=== PATIENT | male | born 1960 | race Caucasian/White ===

== ENCOUNTER 2016-12-28 06:45 | Inpatient (IN) | payer OTHER ==
[2016-11-30 10:17] VITALS: BMI 39.0
--- NOTE | 2016-11-30 10:53 | PAT Medication Instructions ---
Service Date Nov 30, 2016. Current Home Medication List Aspirin (Aspirin), 325 MG PO QPM Atenolol (Tenormin), 25 MG PO QAM Atorvastatin (Lipitor), 40 MG PO QAM Lisinopril/Hctz (Zestoretic 20MG/25MG), 2 TAB PO QAM Mometasone Furoate (Nasal) (Mometasone Furoate), 2 SPRAYS JESENIA PRN Omeprazole (Prilosec), 20 MG PO QAM [Potassium Otc], 1 TAB PO QAM Medication Instructions For Your Scheduled Surgery - Check with surgeon/family doctor for instructions: Aspirin (Aspirin), 325 MG PO QPM - Hold the following medications the morning of surgery: [Potassium Otc], 1 TAB PO QAM Lisinopril/Hctz (Zestoretic 20MG/25MG), 2 TAB PO QAM - Take the following medications the morning of surgery with a sip of water: Atenolol (Tenormin), 25 MG PO QAM Atorvastatin (Lipitor), 40 MG PO QAM Mometasone Furoate (Nasal) (Mometasone Furoate), 2 SPRAYS JESENIA PRN (if needed) Omeprazole (Prilosec), 20 MG PO QAM - Take the following medications as scheduled the night before surgery: Mometasone Furoate (Nasal) (Mometasone Furoate), 2 SPRAYS JESENIA PRN (if needed) If you have any questions please call us at [phone] or [phone] or [phone]
--- NOTE | 2016-11-30 11:45 | DIAGNOSTIC IMAGING REPORT ---
CHEST PREADMISSION(PA/LAT) HISTORY: Preop. COMPARISON: Chest 12/20/2012. FINDINGS: The lungs are clear. Cardiac silhouette is normal in size. No pleural effusions. No pneumothorax. IMPRESSION: No acute process. Electronically signed by: Elier Gilliam M.D. 11/30/2016 11:44 AM Dictated Date/Time: 11/30/2016 11:43 AM
[2016-11-30 12:47] LABS: BASO % 0.4 %; BASO ABS # 0.03 K/uL (0-0.2); COMPLETE YES; EOS % 2.6 %; HEMATOCRIT 42.7 % (42-52); IG% 0.3 %; LYMPH % 30.2 %; LYMPH ABS # 2.29 K/uL (1.2-3.4); MEAN CELL VOLUME 84.1 fL (80-100); MEAN CORPUSCULAR HEMOGLOBIN 29.3 pg (25-34); MEAN CORPUSCULAR HGB CONC 34.9 g/dl (32-36); MEAN PLATELET VOLUME 11.6 fL (7.4-10.4); MONO % 11.1 %; NEUT % 55.4 %; PLATELET COUNT 204 K/uL (130-400); RED BLOOD COUNT 5.08 M/uL (4.7-6.1); WHITE BLOOD COUNT 7.59 K/uL (4.8-10.8)
[2016-11-30 12:56] LABS: BUN/CREATININE RATIO 14.7 (10-20); CALCIUM 9.8 mg/dl (8.5-10.1); CREATININE 1.1 mg/dl (0.60-1.40); POTASSIUM 4.2 mmol/L (3.5-5.1)
[2016-11-30 13:43] LABS: MANUAL MICROSCOPIC REQUIRED? NO; URINE APPEARANCE CLEAR (CLEAR); URINE BILIRUBIN NEG (NEG); URINE COLOR YELLOW; URINE NITRITE NEG (NEG); UROBILINOGEN NEG (NEG)
[2016-11-30 13:44] LABS: REVIEW REQ? NO; ZZUR CULT IF INDIC CLEAN CATCH NO
[~2016-12-28] VITALS: Ht 170.2 cm; Wt 114.3 kg
[2016-12-28] VITALS (8 sets, daily range): BP systolic 113–192; BP diastolic 73–129; PULSE 62–88; TEMP 36.4–37.1; O2SAT 94–98; Ht 170.2 cm; Wt 114.3 kg
[~2016-12-28 06:45] MED LIST: ASPI325T45 PO; ATEN-173 PO; ATOR-24 PO; CEFAZOLIN 2000MG IV PUSH 10 ML IV SCH; LACTATED RINGER'S 1000ML 1,000 ML IV SCH; LISI-788 PO; MOME6000 NAE; POTASSIUM OTC PO; PRLSR20 PO
[2016-12-28] MEDS ORDERED: ACET-1311 PO (07:26)
[2016-12-28] MEDS ORDERED: FENTANYL CITRATE INJ 50 MCG/1 ML 2 ML VIAL IV PRN (07:30)
[2016-12-28] MEDS ORDERED: ATROPINE SULFATE 0.1 MG/ML 5ML SYR IV PRN (07:30)
[2016-12-28] MEDS ORDERED: ONDANSETRON INJ 2 MG/ML 2 ML VIAL IV PRN ×2 (07:30→12:00)
[2016-12-28] MEDS ORDERED: EpHEDrine SULFATE INJ 50 MG/ML AMP IV PRN (07:30)
[2016-12-28] MEDS ORDERED: HYDROmorphone INJ 1 MG/ML SYR IV PRN (07:30)
--- NOTE | 2016-12-28 07:45 | History & Physical Bridge Note ---
H&P Re-Evaluation Bridge Note: I have examined the patient, reviewed the History & Physical and in the interval since the performance of the History & Physical I have noted the following changes of clinical significance: No changes noted
--- NOTE | 2016-12-28 07:46 | History and Physical ---
History & Physical Date Dec 28, 2016. Chief Complaint Back and leg pain History of Present Illness The patient is a 56 year old male with complaints of back and leg pain Additional History Hepatic Disease: No Endocrine Disorder: No Kidney Disease: No Hypertension: Yes Heart Disease: No Bleeding Tendencies: No Infectious Diseases: No Allergies Coded Allergies: Formaldehyde (Verified Allergy, Unknown, DRY SKIN,SENSITIVITY HANDS AND FEET-WAS PATCH TESTED, 12/28/16) Sertraline (Verified Adverse Reaction, Mild, UPSET STOMACH, 12/28/16) Home Medications Scheduled Aspirin (Aspirin), 325 MG PO QPM Atenolol (Tenormin), 25 MG PO QAM Atorvastatin (Lipitor), 40 MG PO QAM Lisinopril/Hctz (Zestoretic 20MG/25MG), 2 TAB PO QAM Mometasone Furoate (Nasal) (Mometasone Furoate), 2 SPRAYS JESENIA PRN Omeprazole (Prilosec), 20 MG PO QAM [Potassium Otc], 1 TAB PO QAM Miscellaneous Medications Acetaminophen (Tylenol), 650 MG PO Physical Examination Skin: warm/dry, no rash Eyes: normal inspection, EOMI, sclerae normal ENT: normal ENT inspection, pharynx normal Head: normocephalic, atraumatic Neck: supple, no adenopathy, trachea midline Respiratory/Chest: lungs clear, normal breath sounds, no respiratory distress Cardiovascular: regular rate, rhythm, no edema, no murmur Abdomen / GI: normal bowel sounds, non tender Back: normal inspection Extremities: normal inspection, normal range of motion Neurologic/Psych: no motor/sensory deficits, alert, normal reflexes, oriented x 3 Diagnosis Lumbar spinal stenosis Plan of Treatment Hardware removal L3 to L5 decompression L1 to L3 with fusion T10 to L5
[2016-12-28] MEDS ORDERED: MIDAZOLAM HCL 1 MG/ML 2ML VIAL ONE (08:14)
[2016-12-28] MEDS ORDERED: FENTANYL CITRATE INJ 50 MCG/1 ML 2 ML VIAL ONE ×4 (08:14→12:00)
[2016-12-28] MEDS ORDERED: CEFAZOLIN SOD 2000MG/10 ML IV PUSH IV ONE (08:33)
[2016-12-28] MEDS ORDERED: ALBUMIN HUMAN 5% 12.5 GM/250 ML VIAL IV ONE (08:39)
[2016-12-28] MEDS ORDERED: BUPIVACAINE/EPINEPHRINE 0.5% MPF 1:200,000 30 ML VIAL ONE (08:41)
[2016-12-28] MEDS ORDERED: BACITRACIN 50000 UNIT VIAL ONE (08:41)
[2016-12-28] MEDS ORDERED: HYDROmorphone INJ 2 MG/ML SYR/VIAL ONE ×3 (09:11→12:03)
[2016-12-28] MEDS ORDERED: LIDOCAINE HCL 2% 2 ML VIAL (20MG/ML) ONE (11:48)
[2016-12-28] MEDS ORDERED: DEXAMETHASONE SOD INJ 4 MG/ML VIAL ONE (11:48)
[2016-12-28] MEDS ORDERED: VOLUVEN IN NSS ONE (11:48)
[2016-12-28] MEDS ORDERED: PROPOFOL IV EMULSION 10 MG/ML 20 ML VIAL IV ONE (11:48)
[2016-12-28] MEDS ORDERED: EpHEDrine SULFATE 50MG/5ML SYR ONE (11:48)
[2016-12-28] MEDS ORDERED: ONDANSETRON INJ 2 MG/ML 2 ML VIAL ONE (11:48)
[2016-12-28] MEDS ORDERED: PHENYLEPHRINE 100MCG/ML 5ML SYR ONE (11:48)
[2016-12-28] MEDS ORDERED: SODIUM CHLORIDE 0.9% 1000ML 1,000 ML IV SCH (11:57)
[2016-12-28] MEDS ORDERED: FLOSEAL HEMOSTATIC MATRIX 10ML TOP ONE (11:58)
[2016-12-28] MEDS ORDERED: DO NOT ADMINISTER FLU VACCINE PRN ×3 (12:00)
[2016-12-28] MEDS ORDERED: LORAZEPAM INJ 0.5 MG in SYRINGE 0.75 ML IV PRN (12:00)
[2016-12-28] MEDS ORDERED: ACETAMINOPHEN 500 MG TAB PO PRN (12:00)
[2016-12-28] MEDS ORDERED: ALUMINUM/MAGNESIUM SUSP 30 ML UDC PO PRN (12:00)
[2016-12-28] MEDS ORDERED: BISACODYL 10 MG SUPP PR PRN (12:00)
[2016-12-28] MEDS ORDERED: SOD PHOSPHATE/SOD BIPHOSPHATE ENEMA 132 ML BTL PR PRN (12:00)
[2016-12-28] MEDS ORDERED: METOCLOPRAMIDE HCL INJ 5 MG/ML 2 ML VIAL IV PRN (12:00)
[2016-12-28] MEDS ORDERED: FAMOTIDINE 20 MG TAB PO PRN (12:00)
[2016-12-28] MEDS ORDERED: hydrOXYzine HCL 25 MG TAB PO PRN (12:00)
[2016-12-28] MEDS ORDERED: DO NOT ADMINISTER PNEUMOCOCCAL VACCINE PRN ×2 (12:00)
[2016-12-28] MEDS ORDERED: NALOXONE HCL 0.4 MG/1 ML VIAL/CARP IV PRN ×2 (12:00)
[2016-12-28] MEDS ORDERED: LORAZEPAM 0.5 MG TAB PO PRN (12:00)
[2016-12-28] MEDS ORDERED: ACETAMINOPHEN IV 100 ML IV PRN (12:00)
[2016-12-28] MEDS ORDERED: PROMETHAZINE HCL INJ 12.5 MG in SODIUM CHLORIDE 0.9% 50ML 50 ML IV PRN (12:00)
[2016-12-28] MEDS ORDERED: MAGNESIUM HYDROXIDE SUSP 30 ML UDC PO PRN (12:00)
--- NOTE | 2016-12-28 12:10 | [facility] Operative Report ---
Operative Report Operative Date Dec 28, 2016. Pre-Operative Diagnosis Lumbar Spinal Stenosis Post-Operative Diagnosis same as pre-operative Procedure(s) Performed #1 removal of posterior segmental instrumentation L3 4 L4 5. #2 exploration of fusion L3 4 L4 5. #3 lumbar decompression medial facetectomies foraminotomies L1 to L2 3 #4 posterior spinal fusion T10 to L3. #5 placement of posterior segmental instrumentation T11 to L5. #6 interbody fusion L2 3. #7 placement peek cage 10 x 26 mm at L2-3. #8 placement of locally harvested morcellized autograft posterior gutters. #9 placement infuse collagen sponge about mask graft posterior gutters and ostial amp in the interbody space. Surgeon Dr. Luis Vasquez Sales Compensation Analyst Surgeon(s) DIANNA Bhandari Estimated Blood Loss 750mL Findings Severe spinal stenosis Specimens Specimen A: Explanted Hardware L3-L5 Description of Procedure Patient was met with preoperatively case discussed all questions were addressed. After informed consent obtained patient was taken to the operative suite underwent intubation placed in a prone position the [place] table top Fabricio frame. All bony prominences were well-padded eyes inspected to ensure there is no external pressure placed upon them. This point the lumbar spine is prepped and draped nostril fashion. Sharp dissection with the assistance of Bovie cautery was performed onto an exposing the lamina and transverse processes of T10-T11 T12 L1 L2 and instrumentation at the L3-L4 and L5 levels bilaterally. Then proceeded remove the hardware at L3 L4-L5 bilaterally spine fusion mass noting it to be intact. Then performed a complete laminectomy of L2 and L3 addressing severe lateral recess and foraminal stenosis. Pedicle screws are then placed in T11-T12 L1 L2 L3 L4-L5 bilaterally with assistance of fluoroscopy and the 8 appropriately sized marie placed. Through a transforaminal approach on the right complete discectomy of L to 3 was performed and plate created to subcortical bleeding bone and a 11 x 26 mm peek cage filled with ostial amp tapped in position. Brought in and compressed locked and final position bilaterally. Cross-link was locked in position. The lamina and transverse processes of T10 T11 T12 L1 2 3 and 4 burred to subcortical bleeding bone infuse collagen sponge mask graft locally harvested morcellized autograft was placed the posterior gutters. 15 round PRADIP drain inserted. Incision was then closed with 1 Vicryl in the fascia 2-0 Vicryl subcutaneously and 4 Monocryl for final skin closure. Steri-Strips sterile dressings placed. Patient we can taken to PACU stable condition. Please note April Gambino was present at the entire procedure involved in patient positioning complex portions of the surgery and final skin closure. I attest to the content of the Intraoperative Record and any orders documented therein. Any exceptions are noted below.
--- NOTE | 2016-12-28 12:38 | DIAGNOSTIC IMAGING REPORT ---
LUMBAR SPINE, INTRAOPERATIVE FLUOROSCOPY HISTORY: T11-L5 fusion. FLUOROSCOPY TIME: 26 seconds. FINDINGS: Intraoperative fluoroscopy was provided for the lumbar spine. 6 fluoroscopic spot images were obtained. Posterior decompression fusion from T11 through L5 with pedicle screws and rods. The hardware appears intact. There are disc spaces at L2-L3, L4-L5, and L5-S1. Posterior to the L2-L3 disc space there is a small sponge like foreign body which appears to be within the left side of the spinal canal. IMPRESSION: Fluoroscopy provided for a T11-L5 posterior decompression and fusion. There are suggestion of a small sponge like foreign body within the left side of the spinal canal posterior to the L2-L3 intervertebral disc spacer. These findings were discussed with Dr. Vasquez at 12:45 PM on 12/28/2016. After discussion with Dr. Vasquez these are for postoperative bleeding and were removed prior to completion of the case. Electronically signed by: Elier Gilliam M.D. 12/28/2016 12:47 PM Dictated Date/Time: 12/28/2016 12:27 PM
[2016-12-28] MEDS ORDERED: HYDROmorphone HCL 0.5MG/ML 50 ML CASSETTE ONE (12:39)
--- NOTE | 2016-12-28 13:06 | Anesthesiology Progress Note ---
Anesthesia Post Op Note Date & Time Dec 28, 2016 at 13:06 Vital Signs Pain Intensity: 0 Vital Signs Past 12 Hours Date Time Temp Pulse Resp B/P (MAP) Pulse Ox O2 Delivery O2 Flow Rate FiO2 12/28/16 13:00 36.3 84 16 183/84 98 Nasal Cannula 3 12/28/16 12:50 82 16 166/87 100 Oxymask 5 12/28/16 12:40 85 16 164/87 96 Oxymask 5 12/28/16 12:32 36.3 84 16 126/96 96 Oxymask 10 12/28/16 07:15 37.1 62 20 192/129 98 Room Air 141/101 Notes Mental Status: alert / awake / arousable, participated in evaluation Pt Amnestic to Procedure: Yes Nausea / Vomiting: adequately controlled Pain: adequately controlled Airway Patency, RR, SpO2: stable & adequate BP & HR: stable & adequate Hydration State: stable & adequate Anesthetic Complications: no major complications apparent
[2016-12-28] MEDS: HYDROmorphone HCL 0.5MG/ML 50 ML CASSETTE IV PRN ×2 (14:58→23:08)
[2016-12-28] MEDS: DEXAMETHASONE INJ 6 MG in SYRINGE 0 ML IV SCH (16:07)
[2016-12-28] MEDS: CEFAZOLIN IV 2,000 MG in SYRINGE 0 ML IV SCH (16:07)
[2016-12-28] MEDS: SODIUM CHLORIDE 0.9% 1000ML 1,000 ML IV SCH (17:48)
[2016-12-28] MEDS ORDERED: NURSING VERBAL MED ORDER ONE (18:00)
[2016-12-28] MEDS: DOCUSATE SODIUM/SENNA 50/8.6MG TAB PO SCH (21:07)
[2016-12-28] MEDS: ASPIRIN 325 MG ECTAB PO SCH (21:08)
[2016-12-29] MEDS: SODIUM CHLORIDE 0.9% 1000ML 1,000 ML IV SCH (00:18)
[2016-12-29] MEDS: DEXAMETHASONE INJ 6 MG in SYRINGE 0 ML IV SCH ×2 (00:18→08:49)
[2016-12-29] MEDS: CEFAZOLIN IV 2,000 MG in SYRINGE 0 ML IV SCH (00:18)
[2016-12-29 03:03] VITALS: BP 126/73; PULSE 74; TEMP 36.5; O2SAT 92
[2016-12-29] MEDS ORDERED: HYDROmorphone INJ 0.5 MG/0.5 ML SYR IV PRN (06:00)
[2016-12-29] MEDS ORDERED: HYDROmorphone INJ 1 MG/ML SYR IV PRN (06:00)
[2016-12-29] MEDS ORDERED: DC PCA SCH (06:00)
[2016-12-29] MEDS ORDERED: NURSING DECISION MEDICATION ORDER SCH (06:15)
[2016-12-29 06:27] LABS: COMPLETE YES; HEMATOCRIT 30.7 % (42-52); IG% 0.4 %; LYMPH % 8.3 %; LYMPH ABS # 1.02 K/uL (1.2-3.4); MEAN CELL VOLUME 83.7 fL (80-100); MEAN CORPUSCULAR HEMOGLOBIN 28.3 pg (25-34); MEAN CORPUSCULAR HGB CONC 33.9 g/dl (32-36); MEAN PLATELET VOLUME 10.7 fL (7.4-10.4); NEUT % 86.3 %; PLATELET COUNT 178 K/uL (130-400); RED BLOOD COUNT 3.67 M/uL (4.7-6.1); WHITE BLOOD COUNT 12.27 K/uL (4.8-10.8)
[2016-12-29 07:00] LABS: BUN/CREATININE RATIO 15.5 (10-20); CALCIUM 7.8 mg/dl (8.5-10.1); CREATININE 0.97 mg/dl (0.60-1.40); POTASSIUM 3.5 mmol/L (3.5-5.1)
[2016-12-29 07:39] VITALS: BP 131/75; PULSE 76; TEMP 36.4; O2SAT 97
--- NOTE | 2016-12-29 08:16 | Progress Note ---
Progress Note Date of Service Dec 29, 2016. Progress Note Patient's back pain is controlled. Leg pain improved. Vital signs are stable. On exam is good strength testing appears comfortable. Assessment status post thoracal lumbar fusion. Planned this time we'll initiate physical therapy today advance his bowel regiment anticipate home this weekend.
[2016-12-29] MEDS ORDERED: LISINOPRIL/HCTZ 20/25MG TAB PO SCH (09:00)
[2016-12-29] MEDS ORDERED: ATORVASTATIN 40 MG TAB PO SCH (09:00)
[2016-12-29] MEDS ORDERED: PANTOprazole SOD 40 MG TAB PO SCH (09:00)
[2016-12-29 11:53] VITALS: BP 122/88; PULSE 94; TEMP 36.5; O2SAT 96
[2016-12-29] MEDS: OXYCODONE HCL IR 5 MG TAB (IMMEDIATE RELEASE) PO PRN (12:31)
[2016-12-29 15:00] VITALS: BP 106/55; PULSE 92; TEMP 36.4; O2SAT 95
[2016-12-29] MEDS: ASPIRIN 325 MG ECTAB PO SCH (21:08)
[2016-12-29] MEDS: DOCUSATE SODIUM/SENNA 50/8.6MG TAB PO SCH (21:08)
[2016-12-29] MEDS ORDERED: NURSING VERBAL MED ORDER ONE (22:30)
[2016-12-29 22:46] VITALS: BP 124/79; PULSE 75; TEMP 36.6; O2SAT 97
[2016-12-30 05:19] VITALS: BP 133/77; PULSE 76
[2016-12-30] MEDS: POLYETHYLENE (MIRALAX) 17 GM PACK PO SCH ×2 (05:20→12:00)
[2016-12-30] MEDS: LISINOPRIL/HCTZ 20/25MG TAB PO SCH (05:21)
[2016-12-30] MEDS: PANTOprazole SOD 40 MG TAB PO SCH (05:21)
[2016-12-30] MEDS: ATORVASTATIN 40 MG TAB PO SCH (05:21)
[2016-12-30] MEDS: OXYCODONE HCL IR 5 MG TAB (IMMEDIATE RELEASE) PO PRN ×3 (05:22→17:01)
[2016-12-30 07:50] VITALS: BP 118/81; PULSE 73; TEMP 36.8; O2SAT 97
[2016-12-30 09:29] VITALS: O2SAT 97
[2016-12-30] MEDS ORDERED: RXC5 PO (09:33)
--- NOTE | 2016-12-30 09:33 | Discharge Instructions ---
Discharge Instructions Date of Service Dec 30, 2016. Admission Reason for Admission: Lumbar Spinal Stenosis Discharge Discharge Diagnosis / Problem: lumbar stenosis Discharge Goals Goal(s): Improve function Activity Recommendations Activity Limitations: per Instructions/Follow-up section . Instructions / Follow-Up Instructions / Follow-Up ACTIVITY RECOMMENDATIONS: SELF CARE INSTRUCTIONS AFTER THORACIC/LUMBAR FUSIONS 1. You may walk to your tolerance. It is good exercise for your legs and back. Expect some back and intermittent leg aches and pains. 2. You may perform "counter-top" level activities (make a sandwich, angelic with a project, etc.). 3. No bending or lifting of more than 10 pounds or back twisting of any nature (roll like a log when turning in bed). 4. You may ride in a car for 20-30 minutes at a time. No driving until after your first visit with your doctor. 5. Frequent changes of position and restricting sitting to 30 minutes at a time will help limit the amount of back spasms and stiffness you may experience. 6. You may discontinue the use of ambulatory aids (cane, crutches, etc.) once your strength and confidence allow. 7. You may second facing baster the shower and let water strike your incision when you arrive home at least once daily. Do not take a tub bath, sit in a hot tub or go into a swimming pool until after your first recheck in the office. SPECIAL CARE INSTRUCTIONS: VERY IMPORTANT TO READ AND REVIEW A. Your surgical incision has been closed with a cosmetic suture under the skin that will dissolve in about 6 weeks. In 14 days, you can use a pair of clean scissors and cut the suture that is left outside of the skin at the ends of your incision. 1. The small skin tapes can be removed 7 days after surgery if they have not fallen off by that point. 2. You may keep the wound open to air as much as possible to promote healing after post-op day number 5 unless told otherwise by your doctor. 3. If you think the wound looks like it is becoming infected (redness or worsening drainage) and/or you are experiencing fever, chill or worsening back pain and muscle spasms, contact the office so that we may evaluate you as soon as possible. B. Complications are uncommon, but please contact us if you have any signs or symptoms of: 1. wound infection (fever higher than 102.5 degrees F, redness, separation of wound, drainage, or increasing pain from the incision) 2. blood clots in legs (pain, swelling, redness and warmth in legs) 3. urinary tract infection (fever higher than 102.5 degrees F, burning upon urination or increased frequency of urination) 4. nerve problems (inability to walk on your toes or heels, numbness, loss of bowel or bladder control) 5. any other symptoms that concern you C. Please call the office at if you have any concerns or questions about your operation or recovery. D. No smoking! Smoking drastically decreases the chance of a solid fusion. E. Do not take any anti-inflammatory medications (Indocin, Advil, Motrin, Aspirin, Naprosyn, etc.) as these may inhibit the chance of a solid fusion. Tylenol is okay to take for pain. MANAGING PAIN AFTER SPINAL SURGERY 1. Narcotic medication is intended for short-term use and will be provided for surgical pain. Surgical pain usually lasts for a period of 4-6 weeks. Narcotic medication includes Percocet, Vicodin, Darvocet, Tylenol #3 or Lortab. 2. Longer-term pain is more appropriately treated with non-narcotic medication such as Tylenol ES. 3. Muscle spasm is not appropriately treated with narcotics. Muscle relaxers such as Soma, Flexeril or Skelaxin can be used along with Tylenol ES. 4. Remember that we all live with some "aches and pains". This is not unusual or uncommon after an injury or as we get older. a. Back pain is expected and may include muscle spasms for 4 to 6 weeks after surgery. The pain should gradually improve. If the pain worsens for no apparent reason, please contact the office. b. Intermittent leg pain may also be experienced and should not be concerned about unless it worsens for no apparent reason. If so, please contact the office. 5. We will provide appropriate medication within the normal guidelines of their prescribed use. We will also be very cautious and aware of potential abuse and extended duration of patients' medication needs. a. Pain medications are for your comfort and to assist with sleep and rest so that the tissue can heal. They are not provided in order to return to normal activity and should not be used through the day. To do so or worsening pain at night can result from ongoing tissue damage and development of tolerance to the prescribed medicine. 6. Please allow 2-3 days to process refills. Prescriptions will not be mailed but must be picked up at the office. FOLLOW UP VISIT: Keep your scheduled follow-up appointment. Any questions, please call the office at . Current Hospital Diet Patient's current hospital diet: Regular Diet Discharge Diet Recommended Diet: Regular Diet Procedures Procedures Performed: #1 removal of posterior segmental instrumentation L3 4 L4 5. #2 exploration of fusion L3 4 L4 5. #3 lumbar decompression medial facetectomies foraminotomies L1 to L2 3 #4 posterior spinal fusion T10 to L3. #5 placement of posterior segmental instrumentation T11 to L5. #6 interbody fusion L2 3. #7 placement peek cage 10 x 26 mm at L2-3. #8 placement of locally harvested morcellized autograft posterior gutters. #9 placement infuse collagen sponge about mask graft posterior gutters and ostial amp in the interbody space. Pending Studies Studies pending at discharge: no Medical Emergencies . Who to Call and When: Medical Emergencies: If at any time you feel your situation is an emergency, please call 911 immediately. . Non-Emergent Contact Non-Emergency issues call your: Primary Care Provider . "Provider Documentation" section prepared by Luis Vasquez. . VTE Core Measure Inpt VTE Proph given/why not?: Jorge Aleman, SCD's
--- NOTE | 2016-12-30 09:49 | Clinical Documentation Query ---
CLINICAL DOCUMENTATION QUERY Dr. FRIEND, In your clinical opinion is this patient being managed for: ( ) Acute blood loss anemia ( ) Not Agree ( ) Other explanation of clinical findings (Please Explain) ( ) Unable to determine (Please Define) ( ) Need to Discuss The medical record reflects the following clinical findings, treatment, and risk factors. Clinical Indicators: 56 yo male presenting with lumbar spinal stenosis for a spinal fusion. Baseline Hgb 14.9, Hct 42.7 which has dropped to 10.4/30.7. EBL of 750 cc with additional 1250 cc hemovac drainage since OR. Treatment: monitor CBC's Risk Factors: expected surgical blood loss Please clarify and document your clinical opinion in the progress notes and discharge summary. Terms such as "probable", "suspected", "likely", "questionable", "possible", or "still to be ruled out" are acceptable. IF IN AGREEMENT, YOU MUST DOCUMENT ABOVE DIAGNOSTIC STATEMENT IN DAILY PROGRESS NOTES AND DISCHARGE SUMMARY. This document is not part of the patient's record. Thank You, Hillary Nicole, ABELINO [phone]
[2016-12-30 11:33] VITALS: BP 120/80; PULSE 82; TEMP 36.9; O2SAT 97
[2016-12-30] MEDS ORDERED: NURSING VERBAL MED ORDER ONE (12:15)
--- NOTE | 2016-12-30 12:20 | Progress Note ---
Progress Note Date of Service Dec 30, 2016. Progress Note Patient's back pain is controlled. Leg pain is improved. Vital signs are stable. On exam is interior bedside as good strength testing appears comfortable. Assessment status post thoracal lumbar fusion replant this time will maintain the PRADIP drain consider possible home tomorrow may require home health for drain management.
[2016-12-30 15:08] VITALS: BP 107/73; PULSE 73; TEMP 36.5; O2SAT 98
[2016-12-30] MEDS ORDERED: ASPIRIN 325 MG ECTAB PO SCH (17:00)
[2016-12-30] MEDS ORDERED: DOCUSATE SODIUM/SENNA 50/8.6MG TAB PO SCH (17:00)
[2016-12-30 22:43] VITALS: BP 113/76; PULSE 69; TEMP 36.4; O2SAT 99
[2016-12-31] MEDS: OXYCODONE HCL IR 5 MG TAB (IMMEDIATE RELEASE) PO PRN ×2 (00:59→09:16)
[2016-12-31 05:13] VITALS: BP 126/81; PULSE 79; O2SAT 96
[2016-12-31] MEDS: LISINOPRIL/HCTZ 20/25MG TAB PO SCH (05:15)
[2016-12-31] MEDS: ATORVASTATIN 40 MG TAB PO SCH (05:16)
[2016-12-31] MEDS: PANTOprazole SOD 40 MG TAB PO SCH (05:16)
[2016-12-31 07:01] VITALS: BP 118/83; PULSE 74; TEMP 36.8; O2SAT 99
--- NOTE | 2016-12-31 09:30 | Discharge Summary ---
Orthopedic Discharge Summary Admission Date/Reason Dec 28, 2016 at 09:00 Lumbar Spinal Stenosis. Discharge Date/Disposition Dec 31, 2016 Home with services Diagnosis Principal Diagnosis: Lumbar spinal stenosis Admission Physical Exam As per Admitting History & Physical. Hospital Course Patient underwent lumbar decompression fusion tolerated this well was taken to the orthopedic floor postoperatively. Postoperatively he was up and amatory on a daily basis ambulate without a walker. Pain markedly improved. Subsequently his discharge home. Discharge orders and instructions found the chart for further review. Discharge Instructions Please refer to the electronic Patient Visit Report (Discharge Instructions) for additional information.
[2016-12-31 12:45] VITALS: BP 118/83; PULSE 74; TEMP 36.8; O2SAT 99
== END 2016-12-31 13:55 | disposition home health service (06) | DRG 455 ==
LOC: C.ACU 06:45 → C.3E 09:00 → ENRESERV 13:00
PROVIDERS: ADMIT Orthopaedic Surgery Orthopaedic Surgery of the Spine; ATTEND Orthopaedic Surgery Orthopaedic Surgery of the Spine
PROC: 0RGA071 Fusion of Thoracolumbar Vertebral Joint with Autologous Tissue Substitute, Posterior Approach, Posterior Column, Open Approach (ICD-10-PCS; principal; 2016-12-28 09:00)
PROC: 0SG1071 Fusion of 2 or more Lumbar Vertebral Joints with Autologous Tissue Substitute, Posterior Approach, Posterior Column, Open Approach (ICD-10-PCS; principal; 2016-12-28 09:00)
PROC: 0ST20ZZ Resection of Lumbar Vertebral Disc, Open Approach (ICD-10-PCS; principal; 2016-12-28 09:00)
PROC: 0SG00AJ Fusion of Lumbar Vertebral Joint with Interbody Fusion Device, Posterior Approach, Anterior Column, Open Approach (ICD-10-PCS; principal; 2016-12-28 09:00)
PROC: 0RG7071 Fusion of 2 to 7 Thoracic Vertebral Joints with Autologous Tissue Substitute, Posterior Approach, Posterior Column, Open Approach (ICD-10-PCS; principal; 2016-12-28 09:00)
PROC: 0QP004Z Removal of Internal Fixation Device from Lumbar Vertebra, Open Approach (ICD-10-PCS; principal; 2016-12-28 09:00)
DX: M48.061 Spinal stenosis, lumbar region without neurogenic claudication (principal); Z79.82 Long term (current) use of aspirin

== ENCOUNTER 2018-11-19 06:01 | Inpatient (IN) ==
--- NOTE | 2018-11-06 14:49 | PAT Medication Instructions ---
Medication Instructions Date of Service November 06, 2018 Home Medications acetaminophen [Tylenol] 650 mg PO Q6H PRN aspirin 325 mg PO QAM atenolol 25 mg PO QAM atorvastatin 40 mg PO QAM lisinopril-hydrochlorothiazide 2 tab PO QAM omeprazole 20 mg PO QAM ASK your prescriber and surgeon aspirin 325 mg PO QAM DO NOT take the morning of surgery lisinopril-hydrochlorothiazide 2 tab PO QAM Take morning of surgery With a small sip of water, OTHERWISE NOTHING TO EAT OR DRINK AFTER MIDNIGHT: acetaminophen [Tylenol] 650 mg PO Q6H PRN (okay to take up to 4 hours prior to surgery if needed) atenolol 25 mg PO QAM atorvastatin 40 mg PO QAM omeprazole 20 mg PO QAM Other Notes If you have any questions please call us at [phone] or [phone] or [phone] or [phone]
--- NOTE | 2018-11-07 09:48 | Anesthesiology Consultation ---
Date of Service November 07, 2018 Assessment & Plan (1) Encounter for pre-operative examination: Chart Review Chart Review: Pending: Refer to Additional Notes / Consult section (pending preop testing (labs, EKG, CXR)) and Patient seen in Pre Admission Testing Teaching & Discussion Pre-Anesthesia Teaching/Discussion Notes: Instructed NPO after midnight before surgery,except medications with 15 cc of water. Medication instructions prov ided according to the PAT guidelines. History Surgery Operation Date: 11/19/18 07:45 Proposed Procedures p Spinal Cord Stimulator Trial - Luis Vasquez DO Operation Date: 11/21/18 07:45 Proposed Procedures p Spinal Cord Stimulator Implant - Luis Vasquez DO Height/Weight Height: 5 ft 7 in Weight: 115.5 kg Allergies Allergy/AdvReac Type Severity Reaction Status Date / Time formaldehyde Allergy Unknown DRY SKIN, Verified 11/07/18 10:00 HAND/FEET SENSITIVITY- + PATCH TESTED sertraline AdvReac Mild DYSPEPSIA Verified 11/07/18 09:46 Medications Home Medications Medication Instructions Recorded Confirmed Last Taken acetaminophen [Tylenol] 650 mg PO Q6H PRN 10/31/18 10/31/18 Unknown aspirin 325 mg PO QAM 10/31/18 10/31/18 Unknown atenolol 25 mg PO QAM 10/31/18 10/31/18 Unknown atorvastatin 40 mg PO QAM 10/31/18 10/31/18 Unknown lisinopril-hydrochlorothiazide 2 tab PO QAM 10/31/18 10/31/18 Unknown omeprazole 20 mg PO QAM 10/31/18 10/31/18 Unknown Past Medical History Medical History CAD (coronary artery disease) non-obstructive (per records) Chronic back pain RLE radiculopathy DVT (deep venous thrombosis) RLE (25 years ago)- s/p AC x 6 months; no issues since GERD (gastroesophageal reflux disease) controlled Hyperlipidemia Hypertension Obesity Osteoarthritis Sleep apnea did not tolerate device Exercise / Class Metabolic Activity III < 4 Walking/Shop/Light housework Past Family History Family History Brother Family history of diabetes mellitus Brother Family history of diabetes mellitus Mother Family history of diabetes mellitus Past Surgical History Surgical History History of arthroscopy LEFT KNEE (MENISCUS REPAIR) History of cardiac cath 1999, 2006= NO STENTS History of lumbar surgery X3; T11-L5 fusion/lumbar revision: 12/28/16: Grade 2 view, MAC#3, ETT 8.5 at [facility] Past Anesthesia History No Hx of Anesthesia Complications and No Family Hx of Anesthesia Complications History of PONV No Hx of PONV and No Hx of Motion Sickness Social History Smoking Status: Former smoker Do You Dip or Chew Tobacco: No Smoking End Date: QUIT 25 YRS AGO Hx Alcohol Use: No Hx Substance Use: No Review of Systems Reflux controlled. Patient denies chest pain, shortness of breath, cough, wheezing, palpitations. Physical Exam Vital Signs VITALS BP 135/84 P 71 TEMP 97.7 SP02 97%RA RESP 16 PHYSICAL Full neck and c-spine range of motion. Full TMJ range of motion. TMD 3 finger breaths (difficult to palpate) Mallampati Score 3 Dentition: missing molars Lungs: clear throughout to auscultation Cardiac: regular rate and rhythm, no murmurs noted Spine: normal Carotid arteries: negative bruit Extremities: no edema Short, thick neck Testing Stress Test Date: 12/26/12 "Normal" myocardial perfusion. No RWMA. LVEF 64%. Stress EKG negative for ischemia.
[2018-11-07 10:47] LABS: Appearance Urine Clear (Clear); Bilirubin Urine Negative (Negative); Blood Urine Negative (Negative); Color Urine Yellow; Glucose Urine UA Negative (Negative); Ketones Urine Negative (Negative); Leukocyte Esterase Urine Negative (Negative); Nitrite Urine Negative (Negative); Protein Urine Negative (Negative); Specific Gravity Urine 1.019 (1.000-1.030); Urobilinogen Urine Negative (Negative)
--- NOTE | 2018-11-07 10:48 | XRay Report ---
XR chest Pre-admission PA/Lat CLINICAL HISTORY: 58 years-old Male presenting with preoperative evaluation. TECHNIQUE: PA and lateral views of the chest were obtained. COMPARISON: 11/30/2016. FINDINGS: Atherosclerosis of the aortic arch. Cardiac silhouette enlarged. Lungs and pleural spaces clear. Dege nerative changes of the thoracic spine. Thoracolumbar fusion hardware new from prior exam. Upper abdo men normal. IMPRESSION: 1. Cardiomegaly. No other convincing evidence of acute cardiopulmonary disease. Electronically signed by: Boris Hernandez M.D. 11/07/2018 10:46 AM
[2018-11-07 11:01] LABS: BUN Creatinine Ratio 16.6 (10-20); Calcium 9.4 mg/dl (8.5-10.1); Creatinine Clr Calc Pharmacy 99.4 ml/min; Est GFR (African American) 99.2; Est GFR (Non-African American) 85.6; Potassium 3.2 mmol/L (3.5-5.1)
[2018-11-07 11:05] LABS: INR 1.2 (0.9-1.1); Partial Thromboplastin Ratio 1.1; Prothrombin Time 11.9 Seconds (9.0-12.0)
[2018-11-07 11:10] LABS: Basophils # (auto) 0.03 K/uL (0-0.2); Basophils % (auto) 0.4 %; Eosinophils # (auto) 0.23 K/uL (0-0.5); Eosinophils % (auto) 3.3 %; Hemoglobin 14.5 g/dL (14.0-18.0); Immature Granulocytes # (auto) 0.04 K/uL (0.00-0.02); Immature Granulocytes % (auto) 0.6 %; Lymphocytes # (auto) 2.17 K/uL (1.2-3.4); Lymphocytes % (auto) 30.8 %; Mean Corpuscular Hemoglobin 28.6 pg (25-34); Mean Corpuscular Hgb Conc 34.5 g/dL (32-36); Mean Corpuscular Volume 82.8 fL (80-100); Mean Platelet Volume 10.8 fL (7.4-10.4); Monocytes # (auto) 0.64 K/uL (0.11-0.59); Monocytes % (auto) 9.1 %; Neutrophils # (auto) 3.93 K/uL (1.4-6.5); Neutrophils % (auto) 55.8 %; Platelet Count 220 K/uL (130-400); RDW Coefficient of Variation 13.1 % (11.5-14.5); RDW Standard Deviation 38.8 fL (36.4-46.3); Red Blood Count 5.07 M/uL (4.7-6.1); White Blood Count 7.04 K/uL (4.8-10.8)
[~2018-11-19 06:01] MED LIST changes: +ACETAMINOPHEN 500 MG TAB PO SCH; -ASPI325T45 PO; -ATEN-173 PO; -ATOR-24 PO; +CEFAZOLIN 2000MG 2,000 MG/15 ML SYR IV SCH; -CEFAZOLIN 2000MG IV PUSH 10 ML IV SCH; +CeleBREX 200 MG CAP PO SCH; +GABAPENTIN 600 MG DOSE PO SCH; -LACTATED RINGER'S 1000ML 1,000 ML IV SCH; -LISI-788 PO; +LR 15ML/HR IV SCH; -MOME6000 NAE; -POTASSIUM OTC PO; -PRLSR20 PO
[2018-11-19 06:50] LABS: INR 1.2 (0.9-1.1); Partial Thromboplastin Time 27.3 Seconds (21.0-31.0); Prothrombin Time 12.4 Seconds (9.0-12.0)
[2018-11-19] MEDS ORDERED: ONDANSETRON INJ 2 MG/ML 2 ML VIAL IV PRN ×2 (06:59→09:55)
[2018-11-19] MEDS ORDERED: ATROPINE SULFATE 0.1 MG/ML 10ML SYR IV PRN (06:59)
[2018-11-19] MEDS ORDERED: ePHEDrine sulfate 50 MG/ML AMP IV PRN (06:59)
[2018-11-19] MEDS ORDERED: HYDROmorphone INJ 2 MG/ML SYR/VIAL IV PRN (06:59)
[2018-11-19] MEDS ORDERED: fentaNYL citrate 100 MCG/2 ML VIAL IV PRN (06:59)
[2018-11-19] MEDS ORDERED: PROMETHAZINE HCL 12.5 MG in SODIUM CHLORIDE 0.9% 50 ML IV PRN (06:59)
[2018-11-19] MEDS ORDERED: METOCLOPRAMIDE HCL INJ 5 MG/ML 2 ML VIAL IV PRN (06:59)
[2018-11-19 07:06] LABS: BUN Creatinine Ratio 14.2 (10-20); Calcium 9.1 mg/dl (8.5-10.1); Creatinine Clr Calc Pharmacy 94.7 ml/min; Est GFR (African American) 93.3; Est GFR (Non-African American) 80.5; Potassium 3.6 mmol/L (3.5-5.1)
[2018-11-19] MEDS ORDERED: BUPIVACAINE/EPINEPHRINE 0.5% MPF 1:200,000 30 ML VIAL ONE (07:06)
[2018-11-19] MEDS ORDERED: BACITRACIN INJ 50,000 UNIT VIAL ONE (07:07)
[2018-11-19] MEDS ORDERED: MIDAZOLAM HCL 1 MG/ML 2ML VIAL ONE (07:10)
[2018-11-19] MEDS ORDERED: DEXAMETHASONE SOD INJ 4 MG/ML VIAL ONE (07:10)
[2018-11-19] MEDS ORDERED: NEOSTIGMINE METHYLSULFATE 1 MG/ML 10ML VIAL ONE (07:10)
[2018-11-19] MEDS ORDERED: GLYCOPYRROLATE 0.2 MG/ML VIAL ONE ×2 (07:10→08:48)
[2018-11-19] MEDS ORDERED: LIDOCAINE HCL 2% 2 ML VIAL/AMP(20MG/ML) INFIL ONE (07:10)
[2018-11-19] MEDS ORDERED: PROPOFOL IV EMULSION 10 MG/ML 20 ML VIAL IV ONE (07:10)
[2018-11-19] MEDS ORDERED: ONDANSETRON INJ 2 MG/ML 2 ML VIAL ONE (07:10)
[2018-11-19] MEDS ORDERED: fentaNYL citrate 100 MCG/2 ML VIAL ONE ×3 (07:11→08:42)
--- NOTE | 2018-11-19 07:25 | History & Physical Bridge Note ---
Date of Service November 19, 2018 History & Physical Bridge Note I have examined the patient, reviewed the History & Physical and in the interval since the performance of the History & Physical I have noted the following changes of clinical significance: no changes noted
--- NOTE | 2018-11-19 07:26 | History & Physical Report ---
Date of Service November 19, 2018 Assessment & Plan (1) Chronic back pain greater than 3 months duration: Spinal cord stimulator trial Present on Admission?: Yes History of Present Illness Chief Complaint: Chronic persistent back and bilateral leg pain Primary Care Provider: Alfonzo Harrington MD This is a 58-year-old male well-known to the presents with chronic persistent back and bilateral leg pain. After failing extensive course of nonoperative care is here for surgical intervention. Allergies Allergy/AdvReac Type Severity Reaction Status Date / Time formaldehyde Allergy Unknown DRY SKIN, Verified 11/19/18 06:20 HAND/FEET SENSITIVITY- + PATCH TESTED sertraline AdvReac Mild DYSPEPSIA Verified 11/19/18 06:20 Home Medications Home Medications Medication Instructions Recorded Confirmed Type acetaminophen [Tylenol] 650 mg PO Q6H PRN 10/31/18 11/19/18 History aspirin 325 mg PO QAM 10/31/18 11/19/18 History atenolol 25 mg PO QAM 10/31/18 11/19/18 History atorvastatin 40 mg PO QAM 10/31/18 11/19/18 History lisinopril-hydrochlorothiazide 2 tab PO QAM 10/31/18 11/19/18 History omeprazole 20 mg PO QAM 10/31/18 11/19/18 History Past Med/Surg History Medical History CAD (coronary artery disease) non-obstructive (per records) Chronic back pain RLE radiculopathy DVT (deep venous thrombosis) RLE (25 years ago)- s/p AC x 6 months; no issues since GERD (gastroesophageal reflux disease) controlled Hyperlipidemia Hypertension Obesity Osteoarthritis Sleep apnea did not tolerate device Surgical History History of arthroscopy LEFT KNEE (MENISCUS REPAIR) History of cardiac cath 1999, 2006= NO STENTS History of lumbar surgery X3; T11-L5 fusion/lumbar revision: 12/28/16: Grade 2 view, MAC#3, ETT 8.5 at [facility] Family History Brother Family history of diabetes mellitus Brother Family history of diabetes mellitus Mother Family history of diabetes mellitus Social History Preferred Language: Telugu Communication Ability: Effective 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 Results & Data Vital Signs (Past 12 Hours) Vital Signs Temp Pulse Resp BP Pulse Ox 11/19/18 06:23 36.6 C 70 20 164/96 H 99
[2018-11-19] MEDS ORDERED: ROCURONIUM BROMIDE 10 MG/ML 5 ML VIAL ONE (08:19)
[2018-11-19] MEDS ORDERED: ePHEDrine sulfate 50 MG/ML AMP ONE (08:24)
--- NOTE | 2018-11-19 08:51 | Operative Report ---
Post Operative Report Pre & Post Diagnosis Operation Date: 11/19/18 07:45 Pre-Op Diagnosis: Lumbar Postlaminectomy syndrome Post-Op Diagnosis: Lumbar Postlaminectomy syndrome Operation Date: 11/21/18 07:45 <No data on this case meets the specified criteria> Procedure Operation Date: 11/19/18 07:45 Actual Procedures #1 T10 laminotomy. #2 placement of 16-lead dorsal column stimulator paddle from T8-T10. #3 attachment of temporary spinal cord stimulator leads. Operation Date: 11/21/18 07:45 <No data on this case meets the specified criteria> Surgeon Luis Vasquez, DO Loan Examiner April Gambino Estimated Blood Loss 25 Findings See Below The patient is 5 foot 7 inches tall weighing over 116 kg with a BMI in excess of 40. The patient's body habitus did add significant technical difficulty to perform his surgery. This added at least 25% increase in operative time. Specimens None Indications This is a 4-year-old male well-known to the presents with above-mentioned diagnosis after failing extensive course of nonoperative care elected to go the above-mentioned procedure. Description of Procedure Patient was met with identified and informed consent obtained. He was then taken to the operative suite underwent intubation placed in a prone position the Francisco table on top of the Fabricio frame. All bony prominences well-padded eyes inspected to ensure no external pressure placed upon the peer at this point the thoracolumbar spine was prepped and draped in normal sterile fashion. The assistance of fluoroscopy identified the T10-11 disc space and a midline incision was created overlying this region. Sharp dissection with the assistance of Bovie electric arteries performed down to and exposing the interlaminar space at T10-T11. And then performed a midline to be large enough to place a 16-lead dorsal column stimulator paddle. It did extend from T8-T10 we verified our position with fluoroscopy. I then sewed the leads into place. I then attached temporary leads and by way of a trocar they were taken to the left flank and attached to a stimulator box. Is verified for efficacy. The incision was then copiously irrigated and closed with subcutaneous Vicryl and Monocryl for final skin closure. Steri-Strip sterile dressings placed. Patient will continue PACU stable condition. Please note April Gambino was present throughout the entire procedure involved in patient positioning complex portions of the surgery and final skin closure. I attest to the content of the Intraoperative Record and any orders documented therein. Any exceptions are noted below.
--- NOTE | 2018-11-19 09:11 | Fluoroscopy Report ---
FL spine 1V any level CLINICAL HISTORY: Spinal cord stimulator trial. COMPARISON STUDY: Lumbar spine fluoroscopic images December 28, 2016. Lumbar spine radiographs Novemb er 11, 2013. FLUOROSCOPY TIME: 6.9 seconds. FLUOROSCOPIC IMAGES: 1 FINDINGS: Exact localization is difficult given partial visualization of the lumbar spine. This singl e AP image demonstrates postoperative findings within the lumbar spine as well as surgical retractors and a spinal cord stimulator. Visualized portions of the leads appear intact. IMPRESSION: Fluoroscopy provided for spinal cord stimulator insertion. Electronically signed by: Richie Bernal M.D. 11/19/2018 9:10 AM
[2018-11-19] MEDS ORDERED: DO NOT ADMINISTER PNEUMOCOCCAL VACCINE PRN (09:55)
[2018-11-19] MEDS ORDERED: LORazepam 1 MG TAB PO PRN (09:55)
[2018-11-19] MEDS ORDERED: OXYCODONE HCL IR 5 MG TAB (IMMEDIATE RELEASE) PO PRN (09:55)
[2018-11-19] MEDS ORDERED: HYDROmorphone INJ 1 MG/ML SYRINGE IV PRN (09:55)
[2018-11-19] MEDS ORDERED: DO NOT ADMINISTER FLU VACCINE PRN (09:55)
[2018-11-19] MEDS ORDERED: MAGNESIUM HYDROXIDE SUSP 30 ML UDC PO PRN (09:55)
[2018-11-19] MEDS ORDERED: NON-FORMULARY MEDICATION (Acetaminophen [Tylenol] 650 MG) PO PRN (09:55)
[2018-11-19] MEDS ORDERED: LORazepam 1 MG/2 ML VIAL IV PRN (09:55)
[2018-11-19] MEDS: SODIUM CHLORIDE 0.9% 1000ML 1,000 ML IV SCH ×2 (10:17→21:13)
--- NOTE | 2018-11-19 11:19 | Anesthesiology Progress Note ---
Date of Service November 19, 2018 Anesthesia Post Procedure Vital Signs Vital Signs: Temp Pulse Pulse Pulse Resp BP BP 11/19/18 10:38 63 16 116/73 11/19/18 10:07 59 L 16 118/74 11/19/18 09:40 36.5 C 61 16 128/76 11/19/18 09:30 36.7 C 62 18 129/75 11/19/18 09:20 63 18 129/79 11/19/18 09:10 64 18 136/76 11/19/18 09:01 36.8 C 68 18 146/80 H 11/19/18 06:23 36.6 C 70 20 164/96 H Pulse Ox 11/19/18 10:38 92 11/19/18 10:07 94 11/19/18 09:40 95 11/19/18 09:30 96 11/19/18 09:20 98 11/19/18 09:10 98 11/19/18 09:01 98 11/19/18 06:23 99 Pain Intensity Medial Back: Pain Intensity: 4 Transfer of Care Handoff Completed per policy Notes Mental Status: alert / awake / arousable and participated in evaluation Patient Amnestic to Procedure: Yes Nausea / Vomiting: adequately controlled Pain: adequately controlled Airway Patency, RR, SpO2: stable & adequate BP & HR: stable & adequate Hydration State: stable & adequate Anesthetic Complications: no major complications apparent
[2018-11-19] MEDS: ACETAMINOPHEN 325 MG TAB PO PRN (14:08)
[2018-11-19] MEDS: CEFAZOLIN 2000MG 2,000 MG/15 ML SYR IV SCH ×2 (16:15→23:38)
[2018-11-19] MEDS: DOCUSATE SODIUM 100 MG CAP PO SCH (20:29)
[2018-11-20] MEDS: ACETAMINOPHEN 325 MG TAB PO PRN ×2 (07:10→21:28)
[2018-11-20] MEDS: CEFAZOLIN 2000MG 2,000 MG/15 ML SYR IV SCH (07:50)
[2018-11-20] MEDS: ASPIRIN 325 MG ECTAB PO SCH (08:37)
[2018-11-20] MEDS: DOCUSATE SODIUM 100 MG CAP PO SCH ×2 (08:37→21:28)
[2018-11-20] MEDS: ATORVASTATIN 40 MG TAB PO SCH (08:37)
[2018-11-20] MEDS: PANTOprazole 40 MG TAB PO SCH (08:38)
[2018-11-20] MEDS: ATENOLOL 25 MG TABLET PO SCH (08:38)
[2018-11-20] MEDS: LISINOPRIL/HCTZ 20/25MG 1 TAB PO SCH (08:38)
--- NOTE | 2018-11-20 10:02 | Orthopedic Progress Note ---
Date of Service November 20, 2018 Assessment & Plan (1) Chronic back pain greater than 3 months duration: This time he is noting significant response to the dorsal stimulator trial. Subsequently we will move towards formal implantation tomorrow. He will be made n.p.o. after midnight. Present on Admission?: Yes Subjective Patient is noting significant improvement of his back pain with the use of his stimulator. Physical Exam Physical Exam: Patient is in the chair at the bedside. Is good strength testing. Results & Data Vital Signs (Past 12 Hours) Vital Signs Temp Pulse Pulse Resp BP BP Pulse Ox 11/20/18 08:35 75 128/81 11/20/18 07:12 36.5 C 74 16 137/89 97 11/20/18 03:10 36.5 C 68 16 114/65 97 11/19/18 23:19 36.8 C 63 16 121/72 93
[2018-11-21] MEDS ORDERED: MIDAZOLAM HCL 1 MG/ML 2ML VIAL ONE (11:16)
[2018-11-21] MEDS ORDERED: fentaNYL citrate 100 MCG/2 ML VIAL ONE ×2 (11:16→12:25)
--- NOTE | 2018-11-21 11:28 | History & Physical Bridge Note ---
Date of Service November 21, 2018 History & Physical Bridge Note I have examined the patient, reviewed the History & Physical and in the interval since the performance of the History & Physical I have noted the following changes of clinical significance: no changes noted
[2018-11-21] MEDS ORDERED: BUPIVACAINE/EPINEPHRINE 0.5% MPF 1:200,000 30 ML VIAL ONE (11:36)
[2018-11-21] MEDS ORDERED: BACITRACIN INJ 50,000 UNIT VIAL ONE (11:36)
--- NOTE | 2018-11-21 11:38 | Anesthesiology Consultation ---
Date of Service November 21, 2018 Assessment & Plan Chart Review Chart Review: Acceptable Risk for Surgery and Patient NOT seen in Pre Admission Testing Consults Requested none ASA ASA3 Proposed Anesthesia Anesthesia Type: General Risk / Benefits Reviewed With: PT / POA / Parent / Guardian, Accepts Plan and Informed Consent Obtained History Surgery Operation Date: 11/19/18 07:45 Proposed Procedures p Spinal Cord Stimulator Trial - Luis Vasquez DO Operation Date: 11/21/18 12:05 Proposed Procedures p Spinal Cord Stimulator Implant - Luis Vasquez DO Height/Weight Height: 5 ft 7 in Weight: 116 kg Allergies Allergy/AdvReac Type Severity Reaction Status Date / Time formaldehyde Allergy Unknown DRY SKIN, Verified 11/19/18 06:20 HAND/FEET SENSITIVITY- + PATCH TESTED sertraline AdvReac Mild DYSPEPSIA Verified 11/19/18 06:20 Medications Home Medications Medication Instructions Recorded Confirmed Last Taken acetaminophen [Tylenol] 650 mg PO Q6H PRN 10/31/18 11/19/18 11/18/18 03:30 aspirin 325 mg PO QAM 10/31/18 11/19/18 11/18/18 03:30 atenolol 25 mg PO QAM 10/31/18 11/19/18 11/19/18 03:30 atorvastatin 40 mg PO QAM 10/31/18 11/19/18 11/19/18 03:30 lisinopril-hydrochlorothiazide 2 tab PO QAM 10/31/18 11/19/18 11/18/18 03:30 omeprazole 20 mg PO QAM 10/31/18 11/19/18 11/19/18 03:30 oxycodone 5 mg PO Q4H PRN #30 tab 11/19/18 Unknown Active Medications Generic Name Dose Route Start Last Admin Trade Name Freq PRN Reason Stop Dose Admin Acetaminophen 650 mg 11/19/18 09:55 11/20/18 21:28 Tylenol PO 12/19/18 09:54 650 mg Q6H PRN Administration MILD Pain 1,2,3 Aspirin 325 mg 11/20/18 09:00 11/20/18 08:37 Ecotrin PO 12/20/18 08:59 325 mg QAM LIZ Administration Atenolol 25 mg 11/20/18 09:00 11/20/18 08:38 Tenormin PO 12/20/18 08:59 25 mg QAM LIZ Administration Atorvastatin Calcium 40 mg 11/20/18 09:00 11/20/18 08:37 Lipitor PO 12/20/18 08:59 40 mg QAM LIZ Administration Docusate Sodium 100 mg 11/19/18 21:00 11/20/18 21:28 Colace PO 12/19/18 20:59 100 mg BID LIZ Administration Lisinopril/HCTZ 2 tab 11/20/18 09:00 11/20/18 08:38 Prinzide 20/25mg PO 12/20/18 08:59 2 tab QAM LIZ Administration Pantoprazole Sodium 40 mg 11/20/18 09:00 11/20/18 08:38 Protonix PO 12/20/18 08:59 40 mg QAM LIZ Administration NPO Date Last Intake of Fluids: 11/20/18 Time Last Intake of Fluids: 18:00 Last Intake of Fluids Comment: sip of water 0330 w/med Date Last Intake of Solids: 11/20/18 Time Last Intake of Solids: 18:00 Past Medical History Medical History Chronic back pain RLE radiculopathy DVT (deep venous thrombosis) RLE (25 years ago)- s/p AC x 6 months; no issues since GERD (gastroesophageal reflux disease) controlled Hyperlipidemia Hypertension Osteoarthritis Sleep apnea did not tolerate device CAD (coronary artery disease) non-obstructive (per records) Obesity Exercise / Class Metabolic Activity III < 4 Walking/Shop/Light housework Past Family History Family History Brother Family history of diabetes mellitus Brother Family history of diabetes mellitus Mother Family history of diabetes mellitus Past Surgical History Surgical History History of arthroscopy LEFT KNEE (MENISCUS REPAIR) History of cardiac cath 1999, 2006= NO STENTS History of lumbar surgery X3; T11-L5 fusion/lumbar revision: 12/28/16: Grade 2 view, MAC#3, ETT 8.5 at [facility] Past Anesthesia History No Hx of Anesthesia Complications and No Family Hx of Anesthesia Complications History of PONV No Hx of PONV and No Hx of Motion Sickness Social History Smoking Status: Former smoker Do You Dip or Chew Tobacco: No Smoking End Date: QUIT 25 YRS AGO Hx Alcohol Use: No Hx Substance Use: No Physical Exam Vital Signs Last Vital Signs Temp 36.8 C 11/21/18 10:13 Pulse 72 11/21/18 10:13 Resp 18 11/21/18 10:13 BP 153/84 H 11/21/18 10:13 Pulse Ox 96 11/21/18 10:13 Constitutional + morbidly obese ENMT Mouth: no dentition abnormality Thyromental Distance: < 3.5 Finger Breadths Mallampati Class: III Neck normal visual inspection, trachea midline, + shortened thyromental distance, + short neck and + thick neck; neck extension not limited Respiratory normal respiratory effort Auscultation: lungs clear to auscultation bilaterally Cardiovascular Rate/Rhythm: regular rate and regular rhythm Heart Sounds: no murmur Vessels: no carotid bruit Musculoskeletal Spine: normal cervical ROM Neurologic moves all extremities Motor/Sensory: no sensory deficit Psychiatric Orientation: alert and oriented x 3 Testing Laboratory Results 11/07/18 10:13 11/19/18 06:27 PT 12.4 Seconds (9.0-12.0) H 11/19/18 06:27 INR 1.2 (0.9-1.1) H 11/19/18 06:27 APTT 27.3 Seconds (21.0-31.0) 11/19/18 06:27 Urine Color Yellow 11/07/18 10:13 Urine Appearance Clear (Clear) 11/07/18 10:13 Urine pH 5.0 (4.5-7.5) 11/07/18 10:13 Ur Specific [place] 1.019 (1.000-1.030) 11/07/18 10:13 Urine Protein Negative (Negative) 11/07/18 10:13 Urine Glucose (UA) Negative (Negative) 11/07/18 10:13 Urine Ketones Negative (Negative) 11/07/18 10:13 Urine Nitrite Negative (Negative) 11/07/18 10:13 Ur Leukocyte Esterase Negative (Negative) 11/07/18 10:13 Blood Type O Positive 11/19/18 06:27 Antibody Screen NEGATIVE 11/19/18 06:27 Electrocardiogram Date: 11/07/18 Findings: + NSR @ (at 68) Chest X-Ray Date: 11/07/18 Findings: + NAD, + cardiomegaly and + atherosclerosis of thoracic aorta
[2018-11-21] MEDS ORDERED: HYDROmorphone INJ 2 MG/ML SYR/VIAL ONE (11:42)
[2018-11-21] MEDS ORDERED: LABETALOL HCL IV 5 MG/ML 20ML IV PRN (12:18)
[2018-11-21] MEDS ORDERED: HYDROmorphone INJ 1 MG/ML SYRINGE IV PRN (12:18)
[2018-11-21] MEDS ORDERED: NALOXONE HCL 0.4 MG/1 ML VIAL/CARP IV PRN (12:18)
[2018-11-21] MEDS ORDERED: ePHEDrine sulfate 50 MG/ML AMP IV PRN (12:18)
[2018-11-21] MEDS ORDERED: ONDANSETRON INJ 2 MG/ML 2 ML VIAL IV PRN (12:18)
[2018-11-21] MEDS ORDERED: FLUMAZENIL 0.1 MG/1 ML 10 ML VIAL IV PRN (12:18)
[2018-11-21] MEDS ORDERED: PROMETHAZINE HCL 12.5 MG in SODIUM CHLORIDE 0.9% 50 ML IV PRN (12:18)
[2018-11-21] MEDS ORDERED: ATROPINE SULFATE 0.1 MG/ML 10ML SYR IV PRN (12:18)
[2018-11-21] MEDS ORDERED: LARYING-O-JET KIT (LTA) ONE ×2 (12:24→12:29)
[2018-11-21] MEDS ORDERED: CEFAZOLIN 250 MG/ML 1 GM VIAL ONE (12:24)
[2018-11-21] MEDS ORDERED: CEFAZOLIN 2000MG 2,000 MG/15 ML SYR IV ONE (12:27)
[2018-11-21] MEDS ORDERED: FLOSEAL HEMOSTATIC MATRIX 10ML TOP ONE (12:27)
[2018-11-21] MEDS ORDERED: PROPOFOL IV EMULSION 10 MG/ML 20 ML VIAL IV ONE (12:29)
[2018-11-21] MEDS ORDERED: GLYCOPYRROLATE 0.2 MG/ML VIAL ONE (12:29)
[2018-11-21] MEDS ORDERED: DEXAMETHASONE SOD INJ 4 MG/ML VIAL ONE (12:29)
[2018-11-21] MEDS ORDERED: LIDOCAINE HCL 2% 2 ML VIAL/AMP(20MG/ML) INFIL ONE (12:29)
[2018-11-21] MEDS ORDERED: NEOSTIGMINE METHYLSULFATE 1 MG/ML 10ML VIAL ONE (12:29)
[2018-11-21] MEDS ORDERED: ROCURONIUM BROMIDE 10 MG/ML 5 ML VIAL ONE (12:29)
[2018-11-21] MEDS ORDERED: ONDANSETRON INJ 2 MG/ML 2 ML VIAL ONE (12:29)
[2018-11-21] MEDS ORDERED: KETOROLAC 30 MG/ML VIAL ONE (12:29)
--- NOTE | 2018-11-21 12:39 | Operative Report ---
Post Operative Report Pre & Post Diagnosis Operation Date: 11/19/18 07:45 Pre-Op Diagnosis: Lumbar Postlaminectomy syndrome Post-Op Diagnosis: Lumbar Postlaminectomy syndrome Operation Date: 11/21/18 12:05 Pre-Op Diagnosis: Lumbar Postlaminectomy syndrome Post-Op Diagnosis: Lumbar Postlaminectomy syndrome Procedure Operation Date: 11/19/18 07:45 Actual Procedures p Spinal Cord Stimulator Trial - Luis Vasquez DO Operation Date: 11/21/18 12:05 Actual Procedures #1 placement of spinal cord stimulator battery. #2 removal of temporary spinal cord stimulator leads. Surgeon Lius Vasquez DO Ciaio Lumite Injector April Gambino Estimated Blood Loss 10 Findings Consistent with Post-Op Diagnosis Specimens None Indications This is a 4-year-old male well-known to me that presents with chronic persistent back and leg symptoms. After failing extensive course of nonoperative care he like to undergo the spinal cord stimulator trial. He had significant results with the trial and subsequently is here for permanent placement. Description of Procedure Patient was met with identified and informed consent obtained. Patient was then taken to the operative suite underwent intubation placed in a prone position the Francisco table on top of the Fabricio frame. All bony prominences well-padded eyes inspected to ensure no external pressure placed upon the peer at this point the thoracolumbar spine was prepped and draped in sterile fashion. I then opened the laminotomy site at T10-11 region. The temporary spinal cord stim leads were identified and removed without difficulty. And then created a pocket over the right flank large enough to contain a battery. By way of a trocar the leads were taken to the pocket and attached to the battery. It was tested for efficacy then buried in the pocket. Incision was then copiously irrigated and closed with subcutaneous Vicryl and Monocryl for final skin closure. Steri- Strip sterile dressing placed. Patient will continue to PACU stable condition. Please note April Gambino present throughout the entire procedure involved in patient positioning complex portions of the surgery and final skin closure. I attest to the content of the Intraoperative Record and any orders documented therein. Any exceptions are noted below.
--- NOTE | 2018-11-21 12:42 | Discharge Summary ---
Date of Service November 21, 2018 Admission HPI Per Admitting Provider This is a 58-year-old male well-known to the presents with chronic persistent back and bilateral leg pain. After failing extensive course of nonoperative care is here for surgical intervention. Principal Diagnosis Chronic persistent back pain with postlaminectomy syndrome Discharge Data Allergies Allergy/AdvReac Type Severity Reaction Status Date / Time formaldehyde Allergy Unknown DRY SKIN, Verified 11/19/18 06:20 HAND/FEET SENSITIVITY- + PATCH TESTED sertraline AdvReac Mild DYSPEPSIA Verified 11/19/18 06:20 Procedures Performed Operation Date: 11/19/18 07:45 Actual Procedures p Spinal Cord Stimulator Trial - Luis Vasquez DO Operation Date: 11/21/18 12:05 Actual Procedures p Spinal Cord Stimulator Implant(Not Applicable) - Luis Vasquez DO Ordered Studies 11/19/18 FL fluoroscopy <1hr Routine [place] spine 1V any level Routine Hospital Course (1) Chronic back pain greater than 3 months duration: Patient underwent placement of a dorsal column stimulator trial on Monday. Tolerated procedure well was taken orthopedic for postoperative. Postoperatively he was noted marked improvement of his symptoms with the use of his stimulator subsequently like to undergo permanent placement on Monday. He tolerated this procedure well and was subsequently discharged home. Discharge orders instructions from the chart for further review. Total Time Total Time Spent Total Time Spent (In Minutes): 20 minutes Discharge Plan Discharge Items Patient Disposition: Home - Self-Care Reason For Visit: Lumbar Postlaminectomy syndrome Discharge Diagnosis: Postlaminectomy syndrome chronic persistent back pain. Activity: Per Instructions section Non-emergency contact: Primary Care Provider Call non-emergency contact if: you have any medication questions Follow-up/Referrals: Alfonzo Harrington MD [Primary Care Provider] - Diet: Regular Addtl Attending Provider Instructions: ACTIVITY RECOMMENDATIONS: SELF CARE INSTRUCTIONS AFTER THORACIC/LUMBAR FUSIONS 1. You may walk to your tolerance. It is good exercise for your legs and back. Expect some back and intermittent leg aches and pains. 2. You may perform "counter-top" level activities (make a sandwich, angelic with a project, etc.). 3. No bending or lifting of more than 10 pounds or back twisting of any nature (roll like a log when turning in bed). 4. You may ride in a car for 20-30 minutes at a time. No driving until after your first visit with your doctor. 5. Frequent changes of position and restricting sitting to 30 minutes at a time will help limit the amount of back spasms and stiffness you may experience. 6. You may discontinue the use of ambulatory aids (cane, crutches, etc.) once your strength and confidence allow. 7. You may contract administrator the shower and let water strike your incision when you arrive home at least once daily. Do not take a tub bath, sit in a hot tub or go into a swimming pool until after your first recheck in the office. SPECIAL CARE INSTRUCTIONS: VERY IMPORTANT TO READ AND REVIEW A. Your surgical incision has been closed with a cosmetic suture under the skin that will dissolve in about 6 weeks. In 14 days, you can use a pair of clean scissors and cut the suture that is left outside of the skin at the ends of your incision. 1. The small skin tapes can be removed 7 days after surgery if they have not fallen off by that point. 2. You may keep the wound open to air as much as possible to promote healing after post-op day number 5 unless told otherwise by your doctor. 3. If you think the wound looks like it is becoming infected (redness or worsening drainage) and/or you are experiencing fever, chill or worsening back pain and muscle spasms, contact the office so that we may evaluate you as soon as possible. B. Complications are uncommon, but please contact us if you have any signs or symptoms of: 1. wound infection (fever higher than 102.5 degrees F, redness, separation of wound, drainage, or increasing pain from the incision) 2. blood clots in legs (pain, swelling, redness and warmth in legs) 3. urinary tract infection (fever higher than 102.5 degrees F, burning upon urination or increased frequency of urination) 4. nerve problems (inability to walk on your toes or heels, numbness, loss of bowel or bladder control) 5. any other symptoms that concern you C. Please call the office at if you have any concerns or questions about your operation or recovery. D. No smoking! Smoking drastically decreases the chance of a solid fusion. E. Do not take any anti-inflammatory medications (Indocin, Advil, Motrin, Aspirin, Naprosyn, etc.) as these may inhibit the chance of a solid fusion. Tylenol is okay to take for pain. MANAGING PAIN AFTER SPINAL SURGERY 1. Narcotic medication is intended for short-term use and will be provided for surgical pain. Surgical pain usually lasts for a period of 4-6 weeks. Narcotic medication includes Percocet, Vicodin, Darvocet, Tylenol #3 or Lortab. 2. Longer-term pain is more appropriately treated with non-narcotic medication such as Tylenol ES. 3. Muscle spasm is not appropriately treated with narcotics. Muscle relaxers such as Soma, Flexeril or Skelaxin can be used along with Tylenol ES. 4. Remember that we all live with some "aches and pains". This is not unusual or uncommon after an injury or as we get older. a. Back pain is expected and may include muscle spasms for 4 to 6 weeks after surgery. The pain should gradually improve. If the pain worsens for no apparent reason, please contact the office. b. Intermittent leg pain may also be experienced and should not be concerned about unless it worsens for no apparent reason. If so, please contact the office. 5. We will provide appropriate medication within the normal guidelines of their prescribed use. We will also be very cautious and aware of potential abuse and extended duration of patients' medication needs. a. Pain medications are for your comfort and to assist with sleep and rest so that the tissue can heal. They are not provided in order to return to normal activity and should not be used through the day. To do so or worsening pain at night can result from ongoing tissue damage and development of tolerance to the prescribed medicine. 6. Please allow 2-3 days to process refills. Prescriptions will not be mailed but must be picked up at the office. FOLLOW UP VISIT: Keep your scheduled follow-up appointment. Any questions, please call the office at . Pending Studies at Discharge: No Stand-Alone Forms: My [facility] D[facility] Medications and ND Order Prescriptions: New oxycodone 5 mg Tablet 5 mg PO Q4H PRN (Reason: Pain) Qty: 30 RF: 0 Continued atorvastatin 40 mg Tablet 40 mg PO QAM RF: 0 aspirin 325 mg Tablet 325 mg PO QAM RF: 0 atenolol 25 mg Tablet 25 mg PO QAM RF: 0 omeprazole 20 mg Capsule,Delayed Release(Dr/Ec) 20 mg PO QAM RF: 0 lisinopril-hydrochlorothiazide 20-25 mg Tablet 2 tab PO QAM RF: 0 acetaminophen [Tylenol] 325 mg Capsule 650 mg PO Q6H PRN (Reason: Pain) RF: 0 Discharge Orders: Discharge Order (Routine); Ordered 11/21/18 Ordered By: Luis Vasquez Admission Data Admit Date/Time: 11/19/18 09:22 Attending Provider: Luis Vasquez Admit Provider: Luis Vasquez Primary Care Provider: Alfonzo Harrington
[2018-11-21] MEDS ORDERED: SUCCINYLCHOLINE 100MG/5ML SYR ONE (13:06)
--- NOTE | 2018-11-21 13:47 | Anesthesiology Progress Note ---
Date of Service November 21, 2018 Anesthesia Post Procedure Vital Signs Vital Signs: Temp Pulse Pulse Pulse Resp BP BP 11/21/18 13:45 36.6 C 58 L 14 143/82 H 11/21/18 13:35 59 L 12 142/76 H 11/21/18 13:25 60 12 139/73 11/21/18 13:15 61 16 133/74 11/21/18 13:05 61 16 138/79 11/21/18 12:58 36.6 C 81 17 133/71 11/21/18 10:13 36.8 C 72 18 153/84 H 11/21/18 07:21 36.6 C 69 15 123/76 11/20/18 23:28 36.8 C 68 16 124/78 11/20/18 15:27 36.7 C 79 16 118/80 Pulse Ox 11/21/18 13:45 100 11/21/18 13:35 100 11/21/18 13:25 100 11/21/18 13:15 100 11/21/18 13:05 100 11/21/18 12:58 99 11/21/18 10:13 96 11/21/18 07:21 97 11/20/18 23:28 98 11/20/18 15:27 96 Pain Intensity Medial Back: Pain Intensity: 3 Transfer of Care Handoff Completed per policy Notes Mental Status: alert / awake / arousable Patient Amnestic to Procedure: Yes Nausea / Vomiting: adequately controlled Pain: adequately controlled Airway Patency, RR, SpO2: stable & adequate BP & HR: stable & adequate Hydration State: stable & adequate Anesthetic Complications: no major complications apparent
[2018-11-21] MEDS: DOCUSATE SODIUM 100 MG CAP PO SCH (14:20)
[2018-11-21] MEDS: ATORVASTATIN 40 MG TAB PO SCH (14:20)
[2018-11-21] MEDS: PANTOprazole 40 MG TAB PO SCH (14:20)
[2018-11-21] MEDS: LISINOPRIL/HCTZ 20/25MG 1 TAB PO SCH (14:21)
[2018-11-21] MEDS: ASPIRIN 325 MG ECTAB PO SCH (14:21)
[2018-11-21] MEDS: ATENOLOL 25 MG TABLET PO SCH (14:21)
== END 2018-11-21 18:29 | disposition home or self-care (01) | DRG 29 ==
LOC: ASU 06:01 → 3E 09:22